=== PATIENT | male | born 1995 | race Caucasian/White ===

== ENCOUNTER 2017-10-24 20:58 | Emergency (ER) | payer BC, SELFPAY ==
[2017-10-24 20:59] VITALS: BP 104/71; PULSE 75; RESP 16; TEMP 36.1; O2SAT 100; BMI 23.3
[2017-10-24] MEDS: fentaNYL 100 MCG/2 ML Ampul 50 MCG IM (21:20)
--- NOTE | 2017-10-24 21:30 | RAD_ITS ---
STUDY: X-RAY - RIGHT RADIUS AND ULNA REASON FOR EXAM: Male, 22 years old. Laceration TECHNIQUE: 2 view(s) of the forearm. COMPARISON: None. FINDINGS: There is no fracture. There is no osseous destruction. No periosteal reaction. There is soft tissue laceration. RAD/Forearm 2 Views IMPRESSION: Intact radius and ulna Electronically Signed: Neel Escoto MD at 21:48 EDT Tel , Service support ,
--- NOTE | 2017-10-24 22:51 | ED.DCSUM_ITS ---
- ER Visit Summary Date of Service: 10/24/17 Chief Complaint: Laceration History of Present Illness: The patient is a [address] Jose De Jesus Black. He is right-hand dominant. He was shutting window when the glass broke and he suffered a laceration to his right forearm. He denies any pain. Reports he has paresthesias in his right thumb. Tetanus is up-to-date. Physical Examination: Vitals: Stable. Afebrile. General: Well-nourished and well-developed. Head: Normocephalic atraumatic. Neck: Supple, no lymphadenopathy. No JVD. Nontender. Cardiovascular: Regular rate and rhythm. No murmurs. Respiratory: No respiratory distress. Clear to auscultation bilaterally. Abdominal: Soft, nontender, nondistended, normal bowel sounds. No guarding, rebound, or peritoneal signs. Back: Nontender. Extremities: 8 cm laceration to the lateral portion of his distal right forearm. This extends through muscle which I suspect is the extensor carpi radialis brevis. I do not appreciate any tendon involvement. This did not get his radial artery. He has decreased sensation to light touch and two-point discrimination in the anterior surface of his right thumb. Is able to extend his thumb against resistance. He has normal sensation in the remainder his fingers.. Skin: Normal color, no rash. Neurologic: Alert and oriented ?3. Cranial nerves II through XII are intact. Normal strength and sensation. Psych: Normal affect. Test Results: X-ray shows no foreign body. Emergency Department Course and Treatment: Patient had his wound anesthetized and repaired. He tolerated it well. He was placed in a volar splint. Treatment Plan: Patient was discussed with Dr. Jimenez, hand surgeon at [facility]. He is instructed to follow-up tomorrow for a repeat exam and further treatment. Disposition: To home in improved and stable condition. Impression: 1. Laceration right forearm, 8 cm, repaired. 2. Volar splint, fabricated. Procedure note: Wound was cleansed with chlorhexidine soap. Anesthetized with 1% lidocaine without epinephrine. Copiously irrigated with normal saline. Wound was explored there is no foreign material present. There was a small, superficial vein that was oozing that was tied off with a single 4-0 Vicryl suture. Bleeding was controlled. It was closed with 9 simple interrupted 4-0 ethilon sutures. The patient tolerated it well. This note was generated with [employer] dictation software. It may contain incorrect words, spelling, and punctuation that were not noted in review of the chart prior to signing ED Disposition - Plan for ED Patient: Disposition: Home or Assisted Living Chief Complaint: Laceration Instructions: ED Lac Hand Poss Nerve Injy Sutr Gl Additional Instructions: Follow-up with Dr. Jimenez tomorrow for further evaluation.
[2017-10-24 23:22] VITALS: BP 98/74; PULSE 73; O2SAT 98
== END 2017-10-24 23:23 | disposition home or self-care (01) ==
LOC: ED 21:54
PROVIDERS: Emergency Provider Emergency Medicine; Family Provider Family Medicine; PCP Family Medicine
DX: S51.812A Laceration without foreign body of left forearm, initial encounter (principal); W25.XXXA Contact with sharp glass, initial encounter; Y93.89 Activity, other specified; Y92.9 Unspecified place or not applicable
CPT/HCPCS: 12004; 73090; 96372; 99283

== ENCOUNTER → 2019-06-30 12:27 | Outpatient (CLI) | payer BC, SELFPAY ==
[2019-06-30 14:08] LABS: Absolute Lymphocyte Count 1.58 X10^3/uL (0.83-4.51); Absolute Neutrophil Count 2.4 X10^3/uL (2.0-7.7); Basophil# 0.02 X10^3/uL; Basophil% 0.4 % (0-1); Eosinophil# 0.02 X10^3/uL; Eosinophils% 0.4 % (0-5); Hemoglobin 16.3 g/dL (13.0-16.5); Lymphocyte # 1.58 X10^3/ul (4.0); Lymphocyte % 32.9 % (19-41); Mean Corpuscular Hgb 29.6 pg (27.0-32.0); Mean Platelet Vol. 12.2 fl (6.2-12.0); Monocyte# 0.76 X10^3/uL; Monocyte% 15.8 % (0-10); NRBC Flagged by Analyzer 0 % (0-5); Neutrophil % 50.1 % (47-70); POSITIVE MORPHOLOGY YES; Platelet Count 141 K/mm3 (150-450); RBC Distribution Width SD 31.9 fl (35.1-43.9); White Blood Count 4.8 K/mm3 (4.4-11.0)
[2019-06-30 14:10] LABS: Differential Indicated SCAN CRITERIA MET
[2019-06-30 14:23] LABS: ALB/GLOB Ratio 1.1 RATIO (0.9-2.4); AST(SGOT) 49 U/L (15-37); Alanine Aminotransfer ALT/SGPT 26 U/L (16-61); Albumin, Serum 4.1 g/dL (3.2-5.0); Alkaline Phosphatase 60 U/L (45-117); Anion Gap 10 (5-15); BUN 32 mg/dL (7-18); BUN/Creat Ratio 30.5 RATIO (10-20); Calcium,Total 8.7 mg/dL (8.5-10.1); Chloride 83 mmol/L (98-107); Creatinine, Serum 1.05 mg/dL (0.70-1.30); EST Glomerular Filtration Rate 94 mL/min (>60); Est Glom Filt Rate - Afr Amer 113 mL/min (>60); Globulin 3.7 g/dL (2.2-4.2); Glucose 96 mg/dL (74-106); Potassium 2.4 mmol/L (3.5-5.1); Protein, Total 7.8 g/dL (6.4-8.2); Sodium Level 127 mmol/L (136-145)
[2019-06-30 14:42] LABS: Reactive Lymphocyte 1+
== END ==
PROVIDERS: PCP Family Medicine; Referring Provider Family Medicine; Visit Provider Family Medicine
DX: R10.9 Unspecified abdominal pain (principal)
CPT/HCPCS: 36415; 80053; 85025

== ENCOUNTER 2019-06-30 13:02 | Emergency (ER) | payer BC, SELFPAY ==
[2019-06-30 13:03] VITALS: BP 115/71; PULSE 109; RESP 18; TEMP 36.4; O2SAT 99; BMI 21.7
--- NOTE | 2019-06-30 13:19 | ED.DCSUM_ITS ---
History of Present Illness Chief Complaint: Seizure Detail of Chief Complaint: Nausea, vomiting and diarrhea Informant: Patient, Family Onset: Today - Today during blood draw he had what appeared to be a seizure, Weeks - The abdominal pain with nausea, vomiting diarrhea started 1 week ago Context: Sudden Onset Timing: Intermittent Quality: Patient became pale, diaphoretic and his extremities stiffened. Location: Blood draw at lab Current Severity: Mild Maximum Severity: Severe Worsened by: Viral infection and blood draw Relieved by: Nothing Associated Symptoms: Abdominal cramping pain, thirst, dry mouth and orthostatic symptoms Narrative: Patient is a 24-year-old male who presents after having a seizure. Blood was being drawn at the time that he had a seizure. He became pale and diaphoretic. He was unresponsive. There was no postictal state. There was no incontinence of urine or stool. He did not bite his tongue. He denies headache. There is no seizure disorder. Patient states he had abdominal pain with nausea, vomit diarrhea started 1 week ago. He had diarrhea the first several days. He reported 3-5 loose watery stools without blood or mucus. He continues to have vomiting. He is vomiting between 5-10 times a day. He denies blood or coffee grounds in the emesis. He does report thirst, dry mouth and orthostatic symptoms. He is not been on antibiotics in the past month. No ill contacts to his knowledge. Mother states no one is ill at home. Prior similar symptoms: No Recent Illness/Hospitalization: Yes - Past Medical History (1) No significant past medical history Status: Acute Past Medical History - Allergies and Home Meds Allergies/Adverse Reactions: Allergies No Known Allergies Allergy (Verified 06/30/19 13:03) Primary Care Physician: Jose De Jesus Reyes MD [Primary Care Provider] - Prior records reviewed: Yes Surgical History: no surgical history Lives: With Family Smoking Status: Current every day smoker Alcohol: None Drugs: None Review of Systems General: Reports: Malaise. Denies: Chills, Fever, Sweats Eyes: Denies: Visual changes - bilaterally, Blurred Vision - bilaterally ENT: Denies: Rhinorrhea, Sore throat Cardiovascular: Denies: Chest pain, Palpitations Respiratory: Denies: Dyspnea, Cough, Dyspnea on exertion Gastrointestinal: Reports: Abdominal pain, Nausea, Vomiting, Diarrhea. Denies: Constipation, Melena, Hematochezia Genitourinary: Denies: Dysuria, Hematuria, Frequency Musculoskeletal: Denies: Myalgias, Arthralgias, Neck pain, Back pain, Swelling, Extremity Pain, -, - Neurological: Reports: Weakness. Denies: Headache, Parasthesia Endocrine: Denies: Polyuria, Polydipsia Physical Exam Vital Signs/Narrative: Vital Signs Temp Pulse Resp BP Pulse Ox 06/30/19 13:03 97.6 F L 109 H 18 115/71 99 Inital Vital Signs reviewed: Yes General: Well nourished, Well developed, No Acute Distress Head: Normocephalic, Atraumatic Eyes: Perrl, EOMI ENT: No rhinorrhea, TM's clear, Dry mucous membranes Neck: Supple, Nontender, No lymphadenopathy, No JVD Cardiovascular: Regular rate, Regular rhythm, No murmurs, Normal S1, Normal S2 Respiratory: No distress, CTA bilaterally, Chest nontender Abdomen: Soft, Nontender, Nondistended, Normal bowel sounds Rectal: Deferred Back: Nontender, Normal Inspection Extremities: Nontender, No edema Skin: Normal color, No rash Neurological: Alert, Oriented x3, Cranial nerves II-XII grossly intact, Normal Strength, Normal Sensation Psychological: Normal affect, Normal Mood Diagnostic/Tx/Re-eval Laboratory Results 06/30/19 13:20 Sodium 127 L Potassium 2.5 L* Chloride 84 L Carbon Dioxide 32.0 Anion Gap 11 BUN 33 H Creatinine 1.12 Estim Creat Clear Calc 94.92 Est GFR (MDRD) Af Amer 105 Est GFR (MDRD) Non-Af 87 BUN/Creatinine Ratio 29.5 H Glucose 118 H Calcium 8.9 Potassium is low at 2.5. Sodium and chloride are also low at [birth year]1983 respectively. BUN is 33 with a creatinine of 1.12. BUN to creatinine ratio is 29.5-1. This is consistent with significant dehydration. Patient received oral potassium solution, 40 mEq q. 1 hour x 8 the total of 3 doses. He is receiving normal saline which should correct his hyponatremia. CO2 and anion gap are normal. Renal function is normal. - Medical Decision Making Kanchan patient is dehydrated. Based on history provided by mother he had a vasovagal episode with seizure-like activity. Because he has had nausea, vomiting diarrhea for 1 week clinically is dehydrated with decreased urine output basic metabolic panel was ordered. He received 1 L of normal saline wide open. It was reassessed. He now has urge to urinate, 1520. After he receives his third dose of p.o. potassium he will be discharged home with appropriate home- going instructions. The afternoon physician we made aware of his history and physical and will only need to intervene if something were to occur. Otherwise he will be discharged to home. ED Disposition - Plan for ED Patient: Disposition: Home or Assisted Living Diagnosis: Abdominal pain, vomiting, and diarrhea, Vasovagal syncope, Hypokalemia due to loss of potassium, Hyponatremia, Acute prerenal azotemia Instructions: VOMITING AND DIARRHEA, Nonspecific (Adult), Self-Care for Vomiting and Diarrhea, Eating a High Potassium Diet Referrals: Jose De Jesus Reyes MD [Primary Care Provider] - 1-2 Days if not improving
[2019-06-30] MEDS: 0.9% Normal Saline 1,000 ML 1000 ML IV (13:23)
[2019-06-30 13:50] LABS: Anion Gap 11 (5-15); BUN 33 mg/dL (7-18); BUN/Creat Ratio 29.5 RATIO (10-20); Calcium,Total 8.9 mg/dL (8.5-10.1); Chloride 84 mmol/L (98-107); Creatinine, Serum 1.12 mg/dL (0.70-1.30); EST Glomerular Filtration Rate 87 mL/min (>60); Est Glom Filt Rate - Afr Amer 105 mL/min (>60); Estimated Creatinine Clearance 94.92 ml/min; Glucose 118 mg/dL (74-106); Potassium 2.5 mmol/L (3.5-5.1); Sodium Level 127 mmol/L (136-145)
[2019-06-30 15:00] VITALS: BP 111/69; PULSE 87; RESP 19; O2SAT 100
== END 2019-06-30 16:20 | disposition home or self-care (01) ==
PROVIDERS: Emergency Provider Emergency Medicine; PCP Family Medicine
DX: R10.9 Unspecified abdominal pain (principal); R11.10 Vomiting, unspecified; R19.7 Diarrhea, unspecified; R55 Syncope and collapse; E87.6 Hypokalemia; E87.1 Hypo-osmolality and hyponatremia; R79.89 Other specified abnormal findings of blood chemistry; E86.0 Dehydration; F17.200 Nicotine dependence, unspecified, uncomplicated
CPT/HCPCS: 80048; 96360; 99284; J7030; A4216

== ENCOUNTER → 2019-10-21 14:01 | Outpatient (CLI) | payer BC, SELFPAY ==
--- NOTE | 2019-10-21 14:04 | RAD_ITS ---
STUDY: X-RAY - LEFT ELBOW REASON FOR EXAM: Male, 24 years old. left elbow pain, fell on it 2 days ago TECHNIQUE: 3 view(s) of the elbow. COMPARISON: None. FINDINGS: Acute nondisplaced coronoid process fracture. No dislocation. No bone destruction. Small volume elbow joint effusion. RAD/Elbow min 3 Views IMPRESSION: Acute nondisplaced coronoid process fracture Small elbow joint effusion Electronically Signed: Johnnie Pal DO at 8:20 EDT Tel , Service support ,
== END ==
PROVIDERS: PCP Family Medicine; Referring Provider Family Medicine; Visit Provider Family Medicine
DX: S59.902A Unspecified injury of left elbow, initial encounter (principal)
CPT/HCPCS: 73080

== ENCOUNTER 2024-06-03 12:07 | Emergency (ER) | payer OTHER, SELFPAY ==
[2024-06-03 12:14] VITALS: BP 129/89; PULSE 77; RESP 18; TEMP 36.7; O2SAT 99; BMI 26.4
--- NOTE | 2024-06-03 12:17 | RAD_ITS ---
HISTORY: pain/edema. TECHNIQUE: XR Hand Min 3 Views. COMPARISON: None. FINDINGS: BONES : Complex comminuted fracture of the second proximal phalanx. Mild ulnar displacement, impaction with overlap, and angulation, apex palmar. Small bone island the third metacarpal head JOINTS: No dislocation. Joint spaces maintained. SOFT TISSUES: Soft tissue swelling of the second finger. RAD/Hand Min 3 Views IMPRESSION: Comminuted fracture of the left second proximal phalanx with angulation and mild displacement.. Electronically Signed: Sherri Kirk MD at 12:58 EST ,
--- NOTE | 2024-06-03 14:13 | EX.ED.UPPERE ---
HPI History of Present Illness Chief Complaint: Upper Extremity Injury Narrative Narrative: 29-year-old male, [id number], presents with work-related injury. 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 He got his left hand crushed by a heavy piece of equipment weighing approximately 3000 pounds. He states that his left hand was not pinned, but he had it removed very quickly. They were trying to remove/move the equipment and it fell off the hooks. He has noticed swelling at the base of his left second digit, and has pain along the proximal phalanx. Pain is worse with movement, and relieved by nothing. He denies other injuries. PFSH PFSH Home Medications ?Medication ?Instructions ?Recorded ?Last Taken ?Type ibuprofen 200 mg tablet 600 mg (3 x 200 mg) PO Q6H PRN PRN 04/05/14 Unknown Rx Pain ##30 NK 10/24/17 Unknown History Allergy/AdvReac Type Severity Reaction Status Date / Time No Known Allergies Allergy Verified 06/03/24 12:13 Social History Smoking Status: Current every day smoker tobacco type: cigarettes ROS ROS ED ROS Narrative Review of systems positive for left hand swelling and pain in left second digit. Pain worse with movement. No other injury. No head pain or neck pain. No wrist pain. EXAM Physical Exam Narrative Exam Narrative: GCS 15. ABCs intact. Inspection of the left hand does reveal moderate swelling at the base of the left second digit. Positive tenderness to palpation proximal phalanx. Good capillary refill second digit fingertip. Cardiovascular examination regular rate and rhythm. Lungs clear to auscultation bilaterally. Abdomen soft and nontender. Const Vital Signs: 06/03/24 12:14 Temperature 98.1 F Temperature Source Temporal Pulse Rate 77 Respiratory Rate 18 Blood Pressure 129/89 H Blood Pressure Mean 102 Pulse Ox 99 Oxygen Delivery Method Room Air MDM MDM MDM Narrative Medical decision making narrative: Differential diagnosis includes but not limited to left finger contusion versus fracture. X-rays were obtained per protocol of the left hand. On my independent interpretation, there is a comminuted fracture of the left second proximal phalanx with mild displacement. It does not appear to be intra-articular. Additionally, although he may have slight abrasions on his hand, I do not feel this is an open fracture that requires antibiotic treatment. As this is a work-related injury, patient will require testing. He was given 1 oxycodone tablet here and he will be placed in an aluminum foam splint. He will continue ice and elevation at home and [id number] analgesics until follow-up. He was referred to Dr. Red Jc for further management and treatment. Return instructions to the emergency department were reviewed. Disposition is discharged home in stable condition. History & Record Review Discussion w/independent historian: Patient Radiography X-Ray: Read by ED Physician and Read by Radiologist Diagnostic Testing: Clinical Impression(s) from Imaging Studies Hand X-Ray 06/03/24 12:17 IMPRESSION: Comminuted fracture of the left second proximal phalanx with angulation and mild displacement.. Electronically Signed: Sherri Kirk MD at 12:58 EST Reading Location ID and State: [facility] / [place] Tel , Service support , Discharge Plan Triage Chief Complaint: Upper Extremity Injury ED Provider: Freeman Abbott Dx/Rx/DC Orders Clinical Impression: Finger fracture, left, Crushing injury of hand and fingers Instructions: ED Crush Injury, Hand, ED Fracture, Finger, Closed Prescriptions: No Action ibuprofen 200 MG tablet 600 mg PO Q6H PRN PRN (Reason: Pain) Qty: 30 0RF NK Primary Care Provider: Care Physician,No Primary Referrals: Red Jc MD [Med Staff - Active Staff] - 3-5 Days Care Physician,No Primary [Primary Care Provider] - Activity Restrictions/Additional Instructions: Call Dr. Jc for an appointment to be seen within the next week. Take [id number] medications as needed for pain. Continue ice and elevation of your left hand/finger at home. Print Language: [place] Citizen Disposition Disposition: Home, Self Care
[2024-06-03] MEDS: oxyCODONE 5 MG Tablet PO (14:23)
[2024-06-03] MEDS: Morphine 4 MG/ML Syringe 8 MG IM (14:43)
[2024-06-03 15:15] VITALS: BP 140/68; PULSE 82; RESP 16; TEMP 36.6; O2SAT 99
== END 2024-06-03 15:17 | disposition home or self-care (01) ==
PROVIDERS: Emergency Provider Emergency Medicine; Visit Provider Emergency Medicine
DX: S62.611A Displaced fracture of proximal phalanx of left index finger, initial encounter for closed fracture (principal); Y99.0 Civilian activity done for income or pay; W23.0XXA Caught, crushed, jammed, or pinched between moving objects, initial encounter; F17.210 Nicotine dependence, cigarettes, uncomplicated; Y93.89 Activity, other specified; Y92.63 Factory as the place of occurrence of the external cause
CPT/HCPCS: 73130; 96372; 99283

== ENCOUNTER 2024-06-06 06:10 | Day surgery (SDC) | payer OTHER, SELFPAY ==
--- NOTE | 2024-06-05 12:53 | PCM.OPRPT ---
Operative Report (Standard) Operative Information Date of Procedure: 06/06/24 Pre-Operative Diagnosis: Left index finger proximal phalanx fracture Post-Operative Diagnosis: Same Surgery/Procedure Performed: Left index finger open reduction internal fixation, CPT: 19588 etl database developer: No Type of Anesthesia: General (with 14 cc 0.25% Marcaine block at the completion of the case) RN Documented Start/Stop Times: Operation Date: 06/06/24 07:30 Case Time Into Pre-Op 06/06/24 06:17 Out of Pre-Op 06/06/24 07:34 Anesthesia Start 06/06/24 07:37 Into Room 06/06/24 07:37 Procedure Start 06/06/24 07:56 Procedure End 06/06/24 08:27 Anesthesia End 06/06/24 08:33 Out of Room 06/06/24 08:33 Procedure Start Time: 07:56 Procedure Stop Time: 08:27 Select all DRAINS/GRAFTS/IMPLANTS that apply: Implanted device (InFram Implant, 2.0 mm x 40 mm screw, Exsomed, Stainless steel ) Implanted device details: Exsomed screw, 2 mm x 40 mm Estimated Blood Loss: minimal Specimen collected: No Description of surgery: Indications: 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 Presents today for ORIF v CRPP. Risks, benefits, and alteratives, discussed, and he desired to proceed with surgery. Procedure Details: Patient was correctly identified preoperative holding and marked, and taken back to the operating room where they were administered general anesthesia. They were prepped and draped in sterile fashion and all proper timeouts were performed per protocol. I began the procedure by taking an x-ray of the fracture. I was able to reduce the fracture with gentle manipulation. I then took a guidewire for an Exsomed intramedullary screw and drilled from the proximal radial side of P1 to the distal ulnar side of P1 across the fracture line stabilizing the fracture. Mini C arm x-rays confirmed proper placement and reduction (on PA and lateral). I then checked the digital cascade and there was no angulation or rotation of the index finger or scissoring. Therefore we proceeded and a cut down with 15 blade scalpel was made down to the base of P1 (this was the open part of the procedure). The screw was then placed through the guidewire into the proximal phalanx across the fracture line bridging the gap and filling the medullary cavity well. I was happy with the x-ray on PA and lateral. I stressed the fracture line with radial and ulnar stress and the construct appeared to be rigid and stable. The cascade was checked one more time and was acceptable. With the guidewire removed, I then irrigated the small wound on the dorsum of the hand and closed with an interrupted horizontal mattress 4-0 nylon suture. The patient tolerated the procedure well and was placed in radial gutter splint with plaster. Surgical Findings: Able to reduce fracture and place screw Complications Complications: No Admit VTE Documentation VTE Mechan Device Prophylaxis: SCD's
--- NOTE | 2024-06-05 13:03 | HP.PCM.SX_ITS ---
HPI - General HPI Narrative COLLIN BOOTH, is a 29 M who presents for left index finger ORIF. Current Encounter (DATE OF SURGERY H&P UPDATE): I saw and examined the patient this morning in pre-operative holding. We discussed risks and benefits of today's surgery and they would like to proceed. NO CHANGE in health history since last seen and evaluated. Ready to proceed with surgery. [facility] Medical History (Updated 06/06/24 @ 06:[address] Kevin Burks MD) Alcohol use Marijuana use Injury of head and neck Former smoker History of edema Home Medications ?Medication ?Instructions ?Recorded ?Last Taken ?Type ibuprofen 200 mg tablet 600 mg (3 x 200 mg) PO Q6H PRN PRN 04/05/14 06/05/24 Rx Pain #30 TABLETS doxycycline monohydrate 100 mg 100 mg PO BID 7 days #14 caps 06/05/24 06/05/24 Rx capsule oxycodone 5 mg capsule 5 mg PO Q4H PRN pain (scale score 06/05/24 06/05/24 Rx 7-10) 5 days #20 caps Allergy/AdvReac Type Severity Reaction Status Date / Time No Known Allergies Allergy Verified 06/05/24 13:46 Surgical History (Updated 06/06/24 @ 06:[address] Kevin Burks MD) History of open arm wound Social History Smoking Status: Former smoker alcohol intake: current substance use type: marijuana Physical Exam Narrative LEFT Upper Extremity Inspection: Swelling and deformity of the left index finger with dorsal angulation. He is unable to make a full fist. Palpation: Deferred Volar hand with superficial skin abrasion at the index finger/palm region without any open fracture component. Motor: Able to bend and extend all MP, PIP, and DIP joints. No signs of tendon injury on the injured left index finger as he is able to bend and extend all of the joints including the DIP joint. Sensory: Intact to light touch on the radial and ulnar borders. Vascular: Finger tips are warm and well perfused with <2 second capillary refill. Assessment & Plan Assessment/Plan (1) Crushing injury of left hand, initial encounter: (2) Closed displaced fracture of phalanx of left index finger: PLAN: Plan I talked the patient extensively about the risks of surgery, including bleeding, infection, damage to surrounding structures, hardware failure, MRI incompatibility of some of the screws that may be used, malunion, non-union, infection/osteomyelitis, surgical site dehiscence and wound formation, need for wound care, need for repeat operations, failure to obtain the desired result, DVT/PE, and the risks of anesthesia including . Talked about closed treatment with attempt at improved reduction v. intervention. Discussed screws v. pinning and risks/benefits (patient would like early ROM if possible). The benefits and alternatives of this surgery were also discussed. All of their questions were answered, and they agreed to proceed with surgery. Hand cleaned and placed in a radial gutter splint. Plan for CRPP v ORIF in the operating room tomorrow morning under general a nesthesia. INTERVAL H&P PLAN, DATE OF SURGERY: We will proceed with surgery today. We further discussed risks of further comminution of the fracture from the hardware, as well as above noted risks. He and his would like to proceed.
[2024-06-06] VITALS (10 sets, daily range): BP systolic 110–118; BP diastolic 57–77; PULSE 76–91; RESP 16–20; TEMP 36.4–37.2; O2SAT 95–100; BMI 25.5
[2024-06-06] MEDS: 0.9% Normal Saline (1000mL) 1,000 ML 15 ML IV (06:41)
--- NOTE | 2024-06-06 06:54 | PCM.PRE.AN2 ---
ASA Classification* ASA Classification ASA Classification: 2 Assessment & Plan Anesthesia* Anesthesia Assessment Anesthesia Assessment: Discussed sedation and/or anesthesia options, risks, benefits, and alternatives with patient/parents/legal guardian/POA. Questions invited. The patient/parents/legal guardian/POA seems to understand and agrees to proceed with anesthesia plan. Reviewed the physical assessment, medical history, allergy history and patient home medications list prior to surgery/procedure/anesthetic and documented any changes. Performed airway and anesthesia risk assessments. Anesthesia Type Anesthesia Type: General History Source History Obtained from:: Patient and Chart Anesthesia Focused Assessment* Temperature: 98.9 F Pulse Rate: 85 Blood Pressure: 112/77 Respiratory Rate: 16 Pulse Ox: 97 Oxygen Delivery Method: Room Air Airway Assessment Mouth opens: >3 cm Mallampati Score: II Teeth Condition: Intact Neck Range of motion (ROM): Full ROM Focused Labs Anesthesia Preop lab: CBC WBC 4.8 K/mm3 (4.4-11.0) 06/30/19 12:35 RBC 5.50 M/mm3 (4.6-6.2) 06/30/19 12:35 Hgb 16.3 g/dL (13.0-16.5) 06/30/19 12:35 Hct 44.0 % (40-54) 06/30/19 12:35 Plt Count 141 K/mm3 (150-450) L 06/30/19 12:35 CHEMISTRY Potassium 2.5 mmol/L (3.5-5.1) L* 06/30/19 13:20 Sodium 127 mmol/L (136-145) L 06/30/19 13:20 BUN 33 mg/dL (7-18) H 06/30/19 13:20 Creatinine 1.12 mg/dL (0.70-1.30) 06/30/19 13:20 Glucose 118 mg/dL (74-106) H 06/30/19 13:20 COAG Pre-Assessment Diagnosis/Proposed Procedure Planned Operative Procedure(s): ORIF LEFT INDEX FINGER Anesthesia History 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 When Was Last Pacemaker Check QUESTION #4 FULL TEXT: You/Your Family Experience fever (hyperthermia) with Anesthesia Last Oral Intake Last Oral intake: Last Oral Intake NPO since 00:00 06/06/24 06:38 Meds taken in AM with sips of No 06/06/24 06:38 water? Meds patient instructed to take am of surgery PONV PONV - school speech therapist: PONV - school speech therapist Female No 06/05/24 13:47 HX of Motion Sickness No 06/05/24 13:47 HX of N/V After Surgery No 06/05/24 13:47 Non-Smoker Yes 06/05/24 13:47 Duration of Surgery greater Yes 06/05/24 13:47 than 60 minutes Number of Risk Factors 2 06/05/24 13:47 PONV Score Moderate Risk 06/05/24 13:47 Height & Weight Height & Weight: Anesthesia: Height & Weight Height 5 ft 7 in 06/06/24 06:38 Weight: 74 kg 06/06/24 06:38 Body Mass Index (BMI) 25.5 06/06/24 06:38 Respiratory Assessment Respiratory Assessment - school speech therapist: Respiratory Tract Infection Hx - school speech therapist Hx Respiratory Tract Infection No 06/05/24 13:47 STOP Sleep Apnea STOP Sleep Apnea - school speech therapist: STOP Sleep Apnea - school speech therapist Hx Hypertension No 06/05/24 13:47 Hx Sleep Apnea No 06/05/24 13:47 CPAP BIPAP Do you snore loudly (louder No 06/05/24 13:47 than talking or can be heard Do you often feel tired/ No 06/05/24 13:47 fatigued/ sleepy during daytime? Has anyone observed you stop No 06/05/24 13:47 breathing during sleep? STOP Results Negative 06/05/24 13:47 QUESTION #5 FULL TEXT : Do you snore loudly (louder than talking or can be heard through closed doors)? Tobacco Use History Tobacco Use History - school speech therapist: Tobacco Use History - school speech therapist Tobacco Use Smoking Status Former smoker 06/05/24 13:47 Hx Tobacco Use No 06/05/24 13:47 Years Smoking Packs Smoked per Day Smoking Cessation Date was Yes - quit smoking within 15 06/05/24 13:47 within the last 15 years years Hx Smoking Cessation Date 05/28/23 06/05/24 13:47 Hx Smoking Cessation No 06/05/24 13:47 Counseling Hematologic Medial History Hematologic Hx - school speech therapist: Hematologic Medical Hx - cyberathlete Hx of Blood Transfusion No 06/05/24 13:47 Hx of Transfusion in last 3 No 06/05/24 13:47 Months Date of Last Transfusion (if within last 3 months) Ever experience any problems No 06/05/24 13:47 with transfusion(s)? Specify any problems Hx of Preganancy in last 3 N/A 06/05/24 13:47 Months Nurse Filling Out Transfusion DSCHRIBER 06/05/24 13:47 & Questions: Date: 06/05/24 06/05/24 13:47 Time: 13:48 06/05/24 13:47 Patient unable to answer at this time (ie. confused, unrespo /Reproduction History /Reproductive History - school speech therapist: /Reproductive Hx- school speech therapist Hx Now No 06/05/24 13:47 Gestational Age (in weeks): EDC: Hx Hx Para Hx Section SAB No 06/05/24 13:47 Active Medications Active Medications: Current Medications Generic Name Dose Route Start Last Admin Trade Name Freq PRN Reason Stop Dose Admin Cefazolin Sodium 2 gm/ N/A 20 mls @ 400 mls/hr 06/06/24 07:30 IV 06/06/24 07:32 PREOP ONE Sodium Chloride 1,000 mls @ 15 mls/hr 06/06/24 06:20 06/06/24 06:41 IV 06/11/24 19:39 15 mls/hr .Q48H JOSÉ MIGUEL Administration Protocol [facility] Medical History Alcohol use Marijuana use Injury of head and neck Former smoker History of edema Home Medications ?Medication ?Instructions ?Recorded ?Last Taken ?Type ibuprofen 200 mg tablet 600 mg (3 x 200 mg) PO Q6H PRN PRN 04/05/14 06/05/24 Rx Pain #30 TABLETS doxycycline monohydrate 100 mg 100 mg PO BID 7 days #14 caps 06/05/24 06/05/24 Rx capsule oxycodone 5 mg capsule 5 mg PO Q4H PRN pain (scale score 06/05/24 06/05/24 Rx 7-10) 5 days #20 caps Allergy/AdvReac Type Severity Reaction Status Date / Time No Known Allergies Allergy Verified 06/05/24 13:46 Surgical History (Updated 06/06/24 @ 06:[address] Kevin Burks MD) History of open arm wound Social History Smoking Status: Former smoker alcohol intake: current substance use type: marijuana Review of Systems (Anesthesia) ROS Narrative System reviewed and no additional complaints, except as documented.
--- NOTE | 2024-06-06 07:30 | RAD_ITS ---
STUDY: X-RAY - LEFT HAND REASON FOR EXAM: Male, 29 years old. ORIF LT INDEX FINGER TECHNIQUE: 19 fluoroscopic intraoperative spot films of the left hand. COMPARISON: Left hand radiographs dated 06/03/2024. FINDINGS: Fluoroscopic intraoperative spot films were obtained during ORIF of the second proximal phalanx, with sequential images demonstrating intraosseous placement of a cannulated fully threaded screw in the second proximal phalanx. RAD/Hand 2 Views IMPRESSION: Intraoperative spot films obtained during ORIF of the second proximal phalanx. Electronically Signed: Chris Blake MD at 14:08 EST ,
[2024-06-06] MEDS: Cefazolin 2 GM in Syringe IV (07:37)
[2024-06-06] MEDS: Bupiv/Epi 0.25% 30 ML Vial (08:18)
--- NOTE | 2024-06-06 08:37 | PCM.POST.ANE ---
Anesthesia: Postop Eval I Current Vital Signs Temperature: 98.3 F Pulse Rate: 91 Blood Pressure: 110/58 Respiratory Rate: 20 Pulse Ox: 98 Assessment Airway patent: Yes Spontaneous unlabored respirations: Yes nausea: No Vomiting: No Anesthesia Complication: No Fluid Hydration Crystalloid volume administer (ml): 800 Total IV fluid infused: 800 Progress Note Anesthesia document: Postop Eval 1 completed: Yes
--- NOTE | 2024-06-06 09:11 | POSTOPAN2_ITS ---
Anesthesia Postop Eval I Sum Postop Eval Completion status Anesthesia document: Postop Eval 1 completed: Yes Anesthesia Postop Eval I Summary Anesthesia Postop Eval I Summary: Anesthesia Postop Eval I: Assessment Summary Airway patent Yes 06/06/24 08:37 BRINE SUPERVISOR.CSIR Spontaneous unlabored Yes 06/06/24 08:37 BRINE SUPERVISOR.CSIR respirations Mental status nausea No 06/06/24 08:37 BRINE SUPERVISOR.CSIR Vomiting No 06/06/24 08:37 BRINE SUPERVISOR.CSIR Anesthesia Postop Eval I: Fluid Summary Crystalloid volume administer 800 06/06/24 08:37 BRINE SUPERVISOR.CSIR (ml) Colloids volume administered ( ml) Blood Product volume administered (ml) Total IV fluid infused 800 06/06/24 08:37 BRINE SUPERVISOR.CSIR Anesthesia Postop Eval I: Summary Notes Anesthesia Complication No 06/06/24 08:37 BRINE SUPERVISOR.CSIR Anesthesia Complication Comment: Post-operative progress note Anesthesia: Postop Eval II Evaluation Mental status: Awake and Calm Pain Level: 0 nausea: No Vomiting: No
--- NOTE | 2024-06-06 09:11 | PCM.POSTANE2 ---
Anesthesia Postop Eval I Sum Postop Eval Completion status Anesthesia document: Postop Eval 1 completed: Yes Anesthesia Postop Eval I Summary Anesthesia Postop Eval I Summary: Anesthesia Postop Eval I: Assessment Summary Airway patent Yes 06/06/24 08:37 EMERGENCY SERVICES PROFESSIONAL.CSIR Spontaneous unlabored Yes 06/06/24 08:37 EMERGENCY SERVICES PROFESSIONAL.CSIR respirations Mental status nausea No 06/06/24 08:37 EMERGENCY SERVICES PROFESSIONAL.CSIR Vomiting No 06/06/24 08:37 EMERGENCY SERVICES PROFESSIONAL.CSIR Anesthesia Postop Eval I: Fluid Summary Crystalloid volume administer 800 06/06/24 08:37 EMERGENCY SERVICES PROFESSIONAL.CSIR (ml) Colloids volume administered ( ml) Blood Product volume administered (ml) Total IV fluid infused 800 06/06/24 08:37 EMERGENCY SERVICES PROFESSIONAL.CSIR Anesthesia Postop Eval I: Summary Notes Anesthesia Complication No 06/06/24 08:37 EMERGENCY SERVICES PROFESSIONAL.CSIR Anesthesia Complication Comment: Post-operative progress note Anesthesia: Postop Eval II Evaluation Mental status: Awake and Calm Pain Level: 0 nausea: No Vomiting: No
[2024-06-06] MEDS: oxyCODONE 5 MG Tablet PO (09:57)
== END 2024-06-06 10:09 | disposition home or self-care (01) ==
LOC: SDC 06:13 → AC 06:14
PROVIDERS: Referring Provider Surgery Plastic and Reconstructive Surgery; Visit Provider Surgery Plastic and Reconstructive Surgery
PROC: (CPT 26735; principal; 2024-06-06 07:15)
DX: S62.611A Displaced fracture of proximal phalanx of left index finger, initial encounter for closed fracture (principal); Z87.891 Personal history of nicotine dependence; W23.0XXA Caught, crushed, jammed, or pinched between moving objects, initial encounter; F12.90 Cannabis use, unspecified, uncomplicated; S67.22XA Crushing injury of left hand, initial encounter
CPT/HCPCS: 26735; 01830; 73120; 76000; C1713; J2405

== ENCOUNTER 2024-06-10 11:16 | Inpatient (IN) | payer OTHER, SELFPAY ==
[2024-06-10] VITALS (10 sets, daily range): BP systolic 120–141; BP diastolic 63–91; PULSE 68–82; RESP 16–146; TEMP 36.2–36.9; O2SAT 95–99; BMI 25.7; BMI 25.4
--- NOTE | 2024-06-10 11:28 | EX.ED.UPPERE ---
HPI History of Present Illness HPI Narrative: Patient presents with pain and swelling to his left hand that became worse over the past few days. Patient had recent surgery to his left index finger. Patient states he followed up with his surgeon today who referred him to the emergency department. Patient describes his pain as burning. Patient states it is worse with any pressure. Patient states nothing seems to help with it. Patient does admit to some numbness, tingling, and weakness in his left hand. Patient denies any fevers or chills. Patient denies any discharge or drainage. Chief Complaint: Upper Extremity Injury Informant: patient Onset/Context/Timing Onset: Days Context: Gradual Onset Timing: Continuous Quality of Pain: Burning Location: Left hand Worsened by: Pressure Relieved by: Nothing Associated Symptoms Associated Symptoms: Positive for Parasthesia and Weakness [facility] Medical History Alcohol use Marijuana use Injury of head and neck Former smoker History of edema Home Medications ?Medication ?Instructions ?Recorded ?Last Taken ?Type ibuprofen 200 mg tablet 600 mg (3 x 200 mg) PO Q6H PRN PRN 04/05/14 06/05/24 Rx Pain #30 TABLETS doxycycline monohydrate 100 mg 100 mg PO BID 7 days #14 caps 06/05/24 06/05/24 Rx capsule Allergy/AdvReac Type Severity Reaction Status Date / Time No Known Allergies Allergy Verified 06/10/24 11:17 Surgical History History of open arm wound Social History Smoking Status: Current every day smoker tobacco type: cigarettes alcohol intake: current substance use type: marijuana ROS ROS ED Constitutional Constitutional ED: Denies chills or fever(s) Eyes Eyes: Denies blurry vision or change in vision ENT ENT ED: Denies rhinorrhea or sore throat Cardiovascular Cardiovascular: Denies chest pain or palpitations Respiratory/Chest Respiratory/Chest: Denies cough or dyspnea Gastrointestinal Gastrointestinal: Denies nausea or vomiting Genitourinary Genitourinary ED: Denies dysuria or hematuria Musculoskeletal Musculoskeletal: Denies back pain or neck pain Integumentary Denies abscess or rash Neurologic Neurologic: Denies headache(s) or weakness Allergic/Immunologic Allergic/Immunologic ED: Denies mouth swelling or urticaria EXAM Physical Exam Const Vital Signs: 06/10/24 11:16 Temperature 97.2 F L Temperature Source Temporal Pulse Rate 68 Respiratory Rate 146 H Blood Pressure 138/91 H Blood Pressure Mean 106 Pulse Ox 98 Oxygen Delivery Method Room Air Positive well nourished and well developed General Appearance ED: well developed and NAD HEENT Reports moist mucous membranes Neck full ROM and supple Extremity Extremity Narrative: There is edema and tenderness over the left hand. There is no discharge or drainage from the surgical wounds. Sensation was intact to light touch in all digits. Capillary refill was less than 2 seconds in all digits. Neuro oriented x3, CN's II-XII intact bilaterally, moves all extremities, no focal motor deficits and no sensory deficits noted Sensorium / Orientation: alert Motor Exam: strength 5/5 throughout Psych mental status grossly normal MDM MDM MDM Narrative Medical decision making narrative: Differential diagnosis includes postoperative infection, osteomyelitis, and cellulitis. CBC will be obtained to assess for leukocytosis and anemia. Basic metabolic profile will be obtained to assess for electrolyte abnormality and renal function. Lab Data Lab results narrative: CBC was reviewed and was within normal limits. Treatment and Re-Evaluation Narrative: Patient was given IV fluids and Ancef. Case was discussed with Dr. Jc. He will admit the patient to his service. He stated that he already obtained x-rays prior to arrival. Patient understood and was agreeable with the plan. All questions were answered. Discharge Plan Dx/Rx/DC Orders Clinical Impression: Cellulitis of hand, left, Finger fracture, left Disposition Disposition: Acute Care Hospital [facility]
[2024-06-10] MEDS: 0.9% Normal Saline (1000mL) 1,000 ML 1000 ML IV (11:49)
[2024-06-10] MEDS: Cefazolin 1 GM/50 ML BAG IV (12:03)
[2024-06-10 12:12] LABS: Absolute Lymphocyte Count 1.45 X10^3/uL (0.83-4.51); Basophil# 0.05 X10^3/uL; Basophil% 0.8 % (0-1); Eosinophil# 0.09 X10^3/uL; Eosinophils% 1.5 % (0-5); Hematocrit 40.4 % (40-54); Hemoglobin 14.3 g/dL (13.0-16.5); Lymphocyte # 1.45 X10^3/ul (0.83-4.51); Lymphocyte % 23.6 % (19-41); Mean Corp Hgb Conc 35.4 g/dL (32-36); Mean Corpuscular Hgb 30.8 pg (27.0-32.0); Mean Corpuscular Volume 87.1 fL (80-94); Mean Platelet Vol. 9.7 fl (6.2-12.0); Monocyte# 0.59 X10^3/uL; Monocyte% 9.6 % (0-10); NRBC Flagged by Analyzer 0 % (0-5); Neutrophil # 3.95 X10^3/uL (2.7-7.7); Neutrophil % 64.2 % (47-70); Platelet Count 216 K/mm3 (150-450); RBC Distribution Width SD 38.5 fl (35.1-43.9); Red Blood Count 4.64 M/mm3 (4.6-6.2); White Blood Count 6.2 K/mm3 (4.4-11.0)
[2024-06-10 12:30] LABS: Anion Gap 4 (5-15); BUN 16 mg/dL (7-18); Calcium,Total 9.1 mg/dL (8.5-10.1); Chloride 104 mmol/L (98-107); Creatinine, Serum 0.89 mg/dL (0.70-1.30); EST Glomerular Filtration Rate 109 mL/min (>60); Est Glom Filt Rate - Afr Amer 132 mL/min (>60); Estimated Creatinine Clearance 116.56 ml/min; Glucose 181 mg/dL (74-106); Potassium 3.8 mmol/L (3.5-5.1); Sodium Level 136 mmol/L (136-145)
--- NOTE | 2024-06-10 12:55 | CASEMGMT ---
Care Management Face to Face with patient for initial transition planning/care coordination assessment in the ED. This writer producer introduced self and role at [facility]. Patient lying in bed, alert and oriented. Patient willing to participate in assessment and is able to answer all questions appropriately. Patient's mother, Jagdeep, bedside; patient gave permission to speak in front of patient's mother. Admitting Diagnosis: cellulitis of left hand Other diagnosis history: no significant past medical history PCP: Dr. Tse Specialists: Dr. Jc. Patient also reports having an arm surgeon at [facility] that patient checks in with occasionally; surgery was 6 years ago. Preferred Pharmacy: [facility] Insurance: patient states this is a worker's compensation claim due to it being a work injury ([facility]); patient reports receiving insurance through patient's employer, [email or web address], at patient's 3 month richard with the [employer]. Patient reports being about 6 weeks in to employment. Prescription Benefit: none Living Will/HPOA: none; denies need for info. LNOK: , Susan. Living Arrangements: lives with in patient's parents' basement; full flight of stairs from main floor to basement; independent at baseline Transportation: patient drives DME: none HHC: none SNF/Rehab: none Community Resources: none Behavioral Health History: none Patient goals: Patient wishes to discharge home and denies need for SNF or HHC at this time. Patient states she has no further needs or concerns. Disposition Plan: admission to acute; RN CM/SW to follow for discharge planning needs that may arise. Chandni Montiel, WATER PLANT OPERATOR, BOSS DYER
--- NOTE | 2024-06-10 14:06 | ED.RN ---
Pt declines to put on hospital gown at this time.
[2024-06-10] MEDS: Vancomycin HCl 1,250 MG in 0.9% Normal Saline (250mL Bag) 250 ML 167 MG IV (14:50)
--- NOTE | 2024-06-10 15:28 | HP.PCM_ITS ---
<Statement entered by Red Jc MD - 06/10/24 17:24> Pt seen & evaluated w/RICHELLE. I personally interviewed & exam the pt. I was involved in all aspects of pt's orders, interpretation of results & treatment HPI - General General Date of Admission: 06/10/24 Date of Service: 06/10/24 Chief Complaint: Left hand pain and erythema HPI Narrative COLLIN BOOTH, is a 29 M who presented to this morning's clinic (06/10/24) with increased pain, erythema, and swelling of his left hand. It was decided to send him to the ED to be evaluated and admitted for IV therapy due to his cellulitis and recently placed hardware. On 06/03/24, Collin, [id number], presented to the ED with work-related injury. 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 He got his left hand crushed by a heavy piece of equipment weighing approximately 3000 pounds. He states that his left hand was not pinned, but he had it removed very quickly. They were trying to remove/move the equipment and it fell off the hooks. He noticed swelling at the base of his left second digit, and has pain along the proximal phalanx. Pain was worse with movement, and relieved by nothing. He denied other injuries. Hand X-Ray 06/03/24 12:17 IMPRESSION: Comminuted fracture of the left second proximal phalanx with angulation and mild displacement (closed fracture). He was taken to the OR on 06/06/[address] Jc for Left index finger open reduction internal fixation. [facility] Medical History Finger fracture, left Crushing injury of hand and fingers Closed displaced fracture of phalanx of left index finger Crushing injury of left hand, initial encounter Alcohol use Marijuana use Injury of head and neck Former smoker History of edema Home Medications ?Medication ?Instructions ?Recorded ?Last Taken ?Type ibuprofen 200 mg tablet 600 mg (3 x 200 mg) PO Q6H PRN PRN 04/05/14 06/05/24 Rx Pain #30 TABLETS doxycycline monohydrate 100 mg 100 mg PO BID 7 days #14 caps 06/05/24 06/05/24 Rx capsule oxycodone 5 mg tablet 5 mg PO Q4H PRN pain 06/10/24 Unknown History Allergy/AdvReac Type Severity Reaction Status Date / Time No Known Allergies Allergy Verified 06/10/24 11:17 Surgical History (Updated 06/10/24 @ 15:57 by Jeri Whitman NP, GINNER HELPER-C) History of open reduction and internal fixation (ORIF) procedure History of open arm wound Social History Smoking Status: Current every day smoker tobacco type: cigarettes alcohol intake: current substance use type: marijuana ROS Constitutional Constitutional: Denies chills or fever(s) Eyes Eyes: Reports none ENT HEENT: Reports none Cardiovascular Cardiovascular: Denies chest pain or dyspnea Respiratory/Chest Respiratory/Chest: Denies cough or dyspnea Gastrointestinal Gastrointestinal: Reports none Genitourinary Genitourinary: Reports none Musculoskeletal Musculoskeletal: Reports as per HPI, extremity pain and joint swelling Integumentary Integumentary: Reports as per HPI Neurologic Neurologic: Reports none Psychiatric Psychiatric: Reports none Endocrine Endocrinology: Reports none Hematologic/Lymphatic Hematologic/Lymphatic: Reports none Allergic/Immunologic Allergic/Immunologic: Reports none Vital Signs Vital Signs Vital Signs: 06/10/24 11:16 06/10/24 12:20 06/10/24 12:44 Temperature 97.2 F L 98.1 F 98.1 F Temperature Source Temporal Oral Pulse Rate 68 72 78 Respiratory Rate 146 H 18 16 Blood Pressure 138/91 H 135/78 H 141/79 H Blood Pressure Mean 106 97 99 Pulse Ox 98 96 97 Oxygen Delivery Method Room Air Room Air 06/10/24 13:00 06/10/24 14:00 06/10/24 15:00 Temperature 98.2 F 98.3 F 98.4 F Temperature Source Oral Oral Oral Pulse Rate 71 72 74 Respiratory Rate 16 16 16 Blood Pressure 132/74 H 135/72 H 132/78 H Blood Pressure Mean 93 93 96 Pulse Ox 97 99 99 Oxygen Delivery Method Room Air Room Air Room Air Weight Weight: 164 lb 10.965 oz Body Mass Index (BMI) 25.7 Physical Exam Const alert and oriented x3 General Appearance: cooperative HEENT normocephalic Head and Scalp: atraumatic Eyes General Eye: normal appearance of both eyes Neck full ROM Resp normal respiratory effort and normal air movement Effort and Inspection: able to speak in complete sentences Cardio regular rate and regular rhythm GI soft to palpation and non-tender Back/Spine normal ROM Extremity Extremity Narrative: LUE: Splint removed Inspection: left index finger without any rotation/angulation. Incision c/d/i no purulent drainage. No fluctuant. But there is significant tenderness to palpation and redness and warmth on the dorsum of the hand, as well as swelling, consistent with cellulitis. Palpation: TTP over the dorsum of the hand. Motor: Deferred today Sensation: Intact to light touch on radial and ulnar borders of all fingers. Vascular: finger warm and well perfused. Skin Skin Narrative: Incision is dry and intact. Neuro oriented x3 Psych mental status grossly normal, thought process normal, cooperative and affect normal Results Lab / Micro Data 06/10/24 11:50 06/10/24 11:50 Labs: Laboratory Results - last 24 hr 06/10/24 11:50: WBC 6.2, RBC 4.64, Hgb 14.3, Hct 40.4, MCV 87.1, MCH 30.8, MCHC 35.4, RDW Std Deviation 38.5, RDW Coeff of Claudia 12.0, Plt Count 216, MPV 9.7, Immature Gran % (Auto) 0.300, Neut % (Auto) 64.2, Lymph % (Auto) 23.6, [place] % (Auto) 9.6, Eos % (Auto) 1.5, Baso % (Auto) 0.8, Absolute Neuts (auto) 4.0, Absolute Lymphs (auto) 1.45, Nucleated RBC % 0, Sodium 136, Potassium 3.8, Chloride 104, Carbon Dioxide 28.0, Anion Gap 4 L, BUN 16, Creatinine 0.89, Estim Creat Clear Calc 116.56, Est GFR (MDRD) Af Amer 132, Est GFR (MDRD) Non-Af 109, BUN/Creatinine Ratio 18.0, Glucose 181 H, Calcium 9.1 Assessment & Plan Assessment/Plan (1) Cellulitis of hand, left: (2) Crushing injury of left hand, initial encounter: (3) Closed displaced fracture of phalanx of left index finger: (4) Crushing injury of hand and fingers: PLAN: Plan Given that there is significant infection today,we will plan for admission under plastic surgery with consultation from infectious disease (although not concern for hardware infection at this time, there is infection after placement of the intramedullary screw). Will plan on starting him on Vancomycin and Zosyn. Will have him keep his left hand/arm elevated (hand elevator) at all times to help with swelling and pain control.
--- NOTE | 2024-06-10 16:02 | PCM.RX.CS ---
Consult Antibiotic Management Pharmacy has been consulted to manage selected antibiotic: Vancomycin Type of Intervention Type of Consult: New start Suspected Infection Suspected Infection: Skin/Soft tissue Prior Doses of Antibiotics Prior Doses of Antibiotics Received/Current Regimen: Vancomycin 1250 mg IV x 1 given 06/10/24 @ 1450 Labs Labs: Sodium 136 mmol/L (136-145) 06/10/24 11:50 Potassium 3.8 mmol/L (3.5-5.1) 06/10/24 11:50 Chloride 104 mmol/L (98-107) 06/10/24 11:50 Carbon Dioxide 28.0 mmol/L (21.0-32.0) 06/10/24 11:50 Anion Gap 4 (5-15) L 06/10/24 11:50 BUN 16 mg/dL (7-18) 06/10/24 11:50 Creatinine 0.89 mg/dL (0.70-1.30) 06/10/24 11:50 Est GFR (MDRD) Af Amer 132 mL/min (>60) 06/10/24 11:50 Est GFR (MDRD) Non-Af 109 mL/min (>60) 06/10/24 11:50 BUN/Creatinine Ratio 18.0 RATIO (10-20) 06/10/24 11:50 Glucose 181 mg/dL (74-106) H 06/10/24 11:50 Dosing Weight Weight used for dosin kg Estimated Creatinine Clearance Estimated Creatinine Clearance: ~ 117 Goal Trough Goal Trough: 15-20 mcg/mL Pharmacy Plan for Drug Dosing Pharmacy Plan for Drug Dosing: Vancomycin 1250 mg IV x 1 followed by 1250 mg Q12H Pharmacy Service will continue to monitor and adjust dosing as required. Follow-Up Labs Follow-Up Labs: Trough: Vancomycin Date/Time Labs Ordered Labs to be done on [date and time ordered]: 06/12/24 @ [id number]
[2024-06-10] MEDS: Piperacil/Tazobactam 3.375 GM in 0.9% Normal Saline (50mL MB+) 50 ML IV ×2 (17:22→22:01)
[2024-06-10] MEDS: Enoxaparin 40 MG/0.4 ML Syringe SC (17:23)
[2024-06-10] MEDS: Acetaminophen 500 MG Tablet 1000 MG PO ×2 (17:23→22:01)
[2024-06-11] MEDS: Vancomycin HCl 1,250 MG in 0.9% Normal Saline (250mL Bag) 250 ML 167 MG IV ×2 (03:13→14:45)
[2024-06-11 03:24] VITALS: BP 124/76; PULSE 72; RESP 16; TEMP 37.2; O2SAT 97
[2024-06-11 05:40] LABS: Absolute Lymphocyte Count 1.71 X10^3/uL (0.83-4.51); Basophil# 0.06 X10^3/uL; Basophil% 1.1 % (0-1); Eosinophil# 0.22 X10^3/uL; Hematocrit 40.5 % (40-54); Lymphocyte # 1.71 X10^3/ul (0.83-4.51); Lymphocyte % 30.8 % (19-41); Mean Corp Hgb Conc 34.6 g/dL (32-36); Mean Corpuscular Hgb 30.4 pg (27.0-32.0); Mean Corpuscular Volume 87.9 fL (80-94); Mean Platelet Vol. 9.5 fl (6.2-12.0); Monocyte# 0.54 X10^3/uL; Monocyte% 9.7 % (0-10); NRBC Flagged by Analyzer 0 % (0-5); Neutrophil # 3.01 X10^3/uL (2.7-7.7); Neutrophil % 54.2 % (47-70); Platelet Count 206 K/mm3 (150-450); RBC Distribution Width CV 11.9 % (11.6-14.6); RBC Distribution Width SD 38.3 fl (35.1-43.9); Red Blood Count 4.61 M/mm3 (4.6-6.2); White Blood Count 5.6 K/mm3 (4.4-11.0)
[2024-06-11 06:16] LABS: Anion Gap 1 (5-15); BUN 13 mg/dL (7-18); BUN/Creat Ratio 15.2 RATIO (10-20); Calcium,Total 9.3 mg/dL (8.5-10.1); Chloride 109 mmol/L (98-107); Creatinine, Serum 0.85 mg/dL (0.70-1.30); EST Glomerular Filtration Rate 114 mL/min (>60); Est Glom Filt Rate - Afr Amer 138 mL/min (>60); Estimated Creatinine Clearance 122.05 ml/min; Glucose 101 mg/dL (74-106); Sodium Level 138 mmol/L (136-145)
[2024-06-11] MEDS: Piperacil/Tazobactam 3.375 GM in 0.9% Normal Saline (50mL MB+) 50 ML IV ×3 (06:26→22:15)
[2024-06-11] MEDS: Acetaminophen 500 MG Tablet 1000 MG PO ×3 (06:27→22:23)
[2024-06-11 06:31] VITALS: BP 108/73; PULSE 78; RESP 16; TEMP 36.6; O2SAT 98
[2024-06-11 07:30] VITALS: O2SAT 97
[2024-06-11 07:39] VITALS: BP 121/58; PULSE 73; RESP 16; TEMP 36.7; O2SAT 97
--- NOTE | 2024-06-11 07:43 | PCM.PN.SRG ---
Subjective Subjective Patient reports improved pain. No fevers or chills. Has been elevating hand. Objective Data Objective Data Vital Signs: Vital Signs Temp Pulse Resp BP Pulse Ox O2 Del Method 98.1 F 73 16 121/58 H 97 Room Air 06/11/24 07:39 06/11/24 07:39 06/11/24 07:39 06/11/24 07:39 06/11/24 07:39 06/11/24 07:39 Oxygen Delivery Method Room Air Weight: 162 lb 3.2 oz Body Mass Index (BMI) 25.4 Intake & Output: Intake and Output for Last 24 Hours 06/09/24 06/10/24 06/11/24 23:59 23:59 23:59 Intake Total 1375 / 1900 1000 / 1000 Balance 1375 / 1900 1000 / 1000 Lab / Micro Data 06/11/24 04:59 06/11/24 04:59 Labs: Laboratory Results - last 24 hr 06/10/24 11:50: WBC 6.2, RBC 4.64, Hgb 14.3, Hct 40.4, MCV 87.1, MCH 30.8, MCHC 35.4, RDW Std Deviation 38.5, RDW Coeff of Claudia 12.0, Plt Count 216, MPV 9.7, Immature Gran % (Auto) 0.300, Neut % (Auto) 64.2, Lymph % (Auto) 23.6, [place] % (Auto) 9.6, Eos % (Auto) 1.5, Baso % (Auto) 0.8, Absolute Neuts (auto) 4.0, Absolute Lymphs (auto) 1.45, Nucleated RBC % 0, Sodium 136, Potassium 3.8, Chloride 104, Carbon Dioxide 28.0, Anion Gap 4 L, BUN 16, Creatinine 0.89, Estim Creat Clear Calc 116.56, Est GFR (MDRD) Af Amer 132, Est GFR (MDRD) Non-Af 109, BUN/Creatinine Ratio 18.0, Glucose 181 H, Calcium 9.1 06/11/24 04:59: WBC 5.6, RBC 4.61, Hgb 14.0, Hct 40.5, MCV 87.9, MCH 30.4, MCHC 34.6, RDW Std Deviation 38.3, RDW Coeff of Claudia 11.9, Plt Count 206, MPV 9.5, Immature Gran % (Auto) 0.200, Neut % (Auto) 54.2, Lymph % (Auto) 30.8, [place] % (Auto) 9.7, Eos % (Auto) 4.0, Baso % (Auto) 1.1 H, Absolute Neuts (auto) 3.0, Absolute Lymphs (auto) 1.71, Nucleated RBC % 0, Sodium 138, Potassium 4.0, Chloride 109 H, Carbon Dioxide 28.0, Anion Gap 1 L, BUN 13, Creatinine 0.85, Estim Creat Clear Calc 122.05, Est GFR (MDRD) Af Amer 138, Est GFR (MDRD) Non-Af 114, BUN/Creatinine Ratio 15.2, Glucose 101, Calcium 9.3 Physical Exam Narrative LUE: Splint removed Inspection: left index finger without any rotation/angulation. Incision c/d/i no purulent drainage. No fluctuant. Slight tenderness to palpation and redness and warmth on the dorsum of the hand, as well as swelling, consistent with cellulitis, but improving. Palpation: TTP over the dorsum of the hand. Motor: Deferred today Sensation: Intact to light touch on radial and ulnar borders of all fingers. Vascular: finger warm and well perfused. Assessment & Plan Assessment/Plan (1) Cellulitis of hand, left: PLAN: Continue Vancomycin and Zosyn Daily BMPs Follow up with ID today when they make recommendations. Discussed ambulation and blood clot prevention with patient. He's going to take several walks today. SCDs also for Pxx. Charges/Coding Procedures Integumentary 111xxx-113xx: [id number] Global Visit
--- NOTE | 2024-06-11 08:06 | WOUNDNOTE ---
Dr Jc already in to see patient this am. states there is no wound at this time. will follow as needed.
[2024-06-11] MEDS: Enoxaparin 40 MG/0.4 ML Syringe SC (08:17)
[2024-06-11] MEDS: 0.9% Saline Lock 10 ML Syringe IV ×2 (11:59→14:46)
--- NOTE | 2024-06-11 12:53 | CON.PCM.ID_ITS ---
Assessment & Plan Assessment/Plan (1) Cellulitis of hand, left: PLAN: S/p OR 06/06/[address] Jc for L index ORIF s/p crush injury 06/03/24 with closed fracture. On vanc/zosyn, hand improved today. Concern for hardware involvement. Likely plan for extended po abx at discharge; had been on po doxy prior to admit. Will follow, thank you, d/w surgery team. HPI Consult Data Date of Consult: 06/11/24 HPI Narrative Reason for Consultation: hand infection HPI Narrative: COLLIN BOOTH, is a 29 M who had crush injury at work 06/03/24. 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 Came to D, taken to OR 06/[address] Jc for L index finger ORIF. Has been on doxy since OR but admitted 06/10 due to several days increased redness, swelling, pain. No drainage, no fever. Admitted on vanc/zosyn, hand less red today. Full ROS performed and neg except as noted above. [facility] Medical History Finger fracture, left Crushing injury of hand and fingers Closed displaced fracture of phalanx of left index finger Crushing injury of left hand, initial encounter Alcohol use Marijuana use Injury of head and neck Former smoker History of edema Home Medications ?Medication ?Instructions ?Recorded ?Last Taken ?Type ibuprofen 200 mg tablet 600 mg (3 x 200 mg) PO Q6H PRN PRN 04/05/14 06/05/24 Rx Pain #30 TABLETS doxycycline monohydrate 100 mg 100 mg PO BID 7 days #14 caps 06/05/24 06/05/24 Rx capsule oxycodone 5 mg tablet 5 mg PO Q4H PRN pain 06/10/24 Unknown History Allergy/AdvReac Type Severity Reaction Status Date / Time No Known Allergies Allergy Verified 06/10/24 11:17 Surgical History (Updated 06/10/24 @ 15:57 by Jeri Whitman NP, EDUCATION SALES CONSULTANT-C) History of open reduction and internal fixation (ORIF) procedure History of open arm wound Social History Smoking Status: Former smoker alcohol intake: current substance use type: marijuana Physical Exam Const alert, oriented x3 and no apparent distress General Appearance: cooperative HEENT normocephalic and head/scalp atraumatic Eyes PERRL and EOMs intact bilaterally Neck supple and No nodes Resp normal air movement and clear to auscultation bilaterally Cardio regular rate and regular rhythm GI soft to palpation, non-tender and non-distended Extremity General Extremity: Negative for edema Skin Skin Narrative: L hand mild swelling, fading redness, no drainage. Neuro CN's II-XII intact bilaterally Lab / Micro Data Attestation: I reviewed the patient's lab results. 06/11/24 04:59 06/11/24 04:59 Labs: Laboratory Results - last 24 hr 06/11/24 04:59: WBC 5.6, RBC 4.61, Hgb 14.0, Hct 40.5, MCV 87.9, MCH 30.4, MCHC 34.6, RDW Std Deviation 38.3, RDW Coeff of Claudia 11.9, Plt Count 206, MPV 9.5, Immature Gran % (Auto) 0.200, Neut % (Auto) 54.2, Lymph % (Auto) 30.8, [place] % (Auto) 9.7, Eos % (Auto) 4.0, Baso % (Auto) 1.1 H, Absolute Neuts (auto) 3.0, Absolute Lymphs (auto) 1.71, Nucleated RBC % 0, Sodium 138, Potassium 4.0, C hloride 109 H, Carbon Dioxide 28.0, Anion Gap 1 L, BUN 13, Creatinine 0.85, Estim Creat Clear Calc 122.05, Est GFR (MDRD) Af Amer 138, Est GFR (MDRD) Non-Af 114, BUN/Creatinine Ratio 15.2, Glucose 101, Calcium 9.3
[2024-06-11 14:13] VITALS: BP 115/69; PULSE 76; RESP 16; TEMP 36.8; O2SAT 99
[2024-06-11] MEDS: 0.9% Normal Saline (100mL Bag) 100 ML 15 ML IV (14:45)
[2024-06-11] MEDS: Docusate Sodium 100 MG Capsule PO (14:54)
[2024-06-11] MEDS: oxyCODONE 5 MG Tablet PO (14:54)
--- NOTE | 2024-06-11 16:22 | NURSING ---
All documentation by student nurse Fatoumata Hopkins reviewed by nursing unit coordinator Rufina KEITHN, RN.
[2024-06-11 22:19] VITALS: BP 104/64; PULSE 79; RESP 16; TEMP 37; O2SAT 99
[2024-06-12 03:15] LABS: Vancomycin, Trough Level 7.8 ug/mL (5.0-15.0)
--- NOTE | 2024-06-12 03:46 | PCM.RX.CS ---
Consult Antibiotic Management Pharmacy has been consulted to manage selected antibiotic: Vancomycin Type of Intervention Type of Consult: Follow-up Suspected Infection Suspected Infection: Skin/Soft tissue Labs Labs: Sodium 138 mmol/L (136-145) 06/11/24 04:59 Potassium 4.0 mmol/L (3.5-5.1) 06/11/24 04:59 Chloride 109 mmol/L (98-107) H 06/11/24 04:59 Carbon Dioxide 28.0 mmol/L (21.0-32.0) 06/11/24 04:59 Anion Gap 1 (5-15) L 06/11/24 04:59 BUN 13 mg/dL (7-18) 06/11/24 04:59 Creatinine 0.85 mg/dL (0.70-1.30) 06/11/24 04:59 Est GFR (MDRD) Af Amer 138 mL/min (>60) 06/11/24 04:59 Est GFR (MDRD) Non-Af 114 mL/min (>60) 06/11/24 04:59 BUN/Creatinine Ratio 15.2 RATIO (10-20) 06/11/24 04:59 Glucose 101 mg/dL (74-106) 06/11/24 04:59 Vancomycin Trough 7.8 ug/mL (5.0-15.0) 06/12/24 02:42 Dosing Weight Weight used for dosin.6 kg Estimated Creatinine Clearance Estimated Creatinine Clearance: 122 Goal Trough Goal Trough: 10-15 mcg/mL Pharmacy Plan for Drug Dosing Pharmacy Plan for Drug Dosing: Vancomycin trough level of 7.8, drawn 12hrs post-dose, was below the target range of 10-15. Will increase dose to 1750mg q12h. Per dosing calculator, this will give an estimated new trough of 11.3. Another level will be drawn prior to the fourth dose of the new regimen. Pharmacy Service will continue to monitor and adjust dosing as required. Follow-Up Labs Follow-Up Labs: Trough: Vancomycin Date/Time Labs Ordered Labs to be done on [date and time ordered]: 06/13/24 @1500
[2024-06-12] MEDS: Vancomycin HCl 1,750 MG in 0.9% Normal Saline (500mL Bag) 500 ML 250 MG IV (03:52)
[2024-06-12 04:00] VITALS: BP 107/58; PULSE 66; RESP 16; TEMP 37.2; O2SAT 98
[2024-06-12] MEDS: Acetaminophen 500 MG Tablet 1000 MG PO ×2 (06:05→13:58)
[2024-06-12] MEDS: Piperacil/Tazobactam 3.375 GM in 0.9% Normal Saline (50mL MB+) 50 ML IV (06:06)
[2024-06-12] MEDS: 0.9% Saline Lock 10 ML Syringe IV (06:06)
[2024-06-12 08:27] VITALS: BP 122/76; PULSE 89; RESP 14; TEMP 36.4; O2SAT 97
[2024-06-12] MEDS: oxyCODONE 5 MG Tablet PO (08:34)
[2024-06-12] MEDS: Ibuprofen 600 MG Tablet PO (08:34)
--- NOTE | 2024-06-12 08:38 | NURSING ---
concur with SN assessment
--- NOTE | 2024-06-12 10:26 | PCM.PN.ID ---
Physical Exam Narrative Feeling better, hand improved, no fever, no n/v/d. Const alert and no apparent distress General Appearance: cooperative Resp normal air movement and clear to auscultation bilaterally Cardio regular rate and regular rhythm GI soft to palpation, non-tender and non-distended Skin Skin Narrative: L hand improved redness and swelling ID ID: Route of nutrition/ use of supplements: [] Nutritional Intake: [] IV Site: [] Hightower Catheter: [] Assessment & Plan Assessment/Plan (1) Cellulitis of hand, left: PLAN: S/p OR 06/06/[address] Jc for L index ORIF s/p crush injury 06/03/24 with closed fracture. On vanc/zosyn, hand improved today. Concern for hardware involvement. Will write for 6 weeks po doxy and augmentin, ID followup in 2-3 weeks. Will follow, d/w case management assistant
--- NOTE | 2024-06-12 13:03 | PN.SURG_ITS ---
Subjective Subjective Patient is doing well. He states he continues to have incisional discomfort. He states that the redness and swelling are improving. His pain has improved. He has been doing a good job keeping his hand elevated and his splint in place. He would like to go home today. Objective Data Objective Data Vital Signs: Vital Signs Temp Pulse Resp BP Pulse Ox O2 Del Method 97.6 F L 89 14 122/76 H 97 Room Air 06/12/24 08:27 06/12/24 08:27 06/12/24 08:27 06/12/24 08:27 06/12/24 08:27 06/12/24 08:27 Oxygen Delivery Method Room Air Weight: 162 lb 3.2 oz Body Mass Index (BMI) 25.4 Intake & Output: Intake and Output for Last 24 Hours 06/10/24 06/11/24 06/12/24 23:59 23:59 23:59 Intake Total 1375 / 1900 2125.25 / 212.25 1035 / 1035 Balance 1375 / 1900 2124. / 1035 / 1035 Lab / Micro Data Attestation: I reviewed the patient's lab results. 06/11/24 04:59 06/11/24 04:59 Labs: Laboratory Results - last 24 hr 06/12/24 02:42: Vancomycin Trough 7.8 Physical Exam Narrative Left index finger without any rotation or angulation. Incision is dry and intact. Erythema has resolved. Fingers and hand are warm, dry and well perfused. Sensation intact. Splint in place. Const alert and oriented x3 General Appearance: cooperative Orientation / Consciousness: awake HEENT normocephalic Eyes General Eye: normal appearance of both eyes Neck full ROM Resp normal respiratory effort and normal air movement Effort and Inspection: able to speak in complete sentences Cardio regular rate and regular rhythm Back/Spine normal ROM Assessment & Plan Assessment/Plan (1) Cellulitis of hand, left: PLAN: Patient doing well. ID into see patient earlier today. He will start patient on po Doxy and Augmentin for 6 weeks. Hudson will follow up with Dr. Calvo in 2-3 weeks. The plan is to discharge patient home today. He will follow up with Dr. Jc on Sunday at 0830 [facility]. Charges/Coding Procedures Integumentary 111xxx-113xx: [id number] [facility] Visit
--- NOTE | 2024-06-12 13:03 | DCINST_ITS ---
Discharge Instructions Diet Discharge Diet: No restrictions (high protein diet to help with healing) DC O2, CPAP, BIPAP needs Home O2 Discharge instructions: No Dressing / Incision Lifting Restrictions: No lifting with left hand Keep extremity elevated above heart level: Left Arm Additional Activity Instructions:: Wear splint at all times (except for washing hand). Shower with splint on. Dressing / Incision Call your doctor if your incision/area has: Continuous Slow Oozing, Increased Pain/ Swelling, Increased Redness, Foul Smelling Discharge and Swelling at the incision site Call your doctor if you observe: Fever of 101 or Higher, Inability to have a bowel movement, Shortness of breath, Calf discomfort and Uncontrolled pain Cleanse incision/area with: Soap & Water Follow Up Care Please Follow Up With: Red Jc MD When: Sunday06/17/24 at 8:45 am at [email or web address] Test Results: Test results from this visit will be discussed in further detail at your follow- up appointment, if applicable. Discharge Plan Admission Admit Date/Time: 06/10/24 13:04 Attending Provider: Red Jc Primary Care Provider: Blanche Tse Consulting Providers: Red Calvo Discharge Orders/Prescriptions Prescriptions: New doxycycline hyclate 100 mg capsule 100 mg PO BID Qty: 80 0RF amoxicillin-pot clavulanate 875-125 mg tablet 1 tab PO BID Qty: 80 0RF oxycodone 5 mg tablet 5 mg PO TID PRN (Reason: pain (scale score 7-10)) 7 Days Qty: 20 0RF Discontinued doxycycline monohydrate 100 mg capsule 100 mg PO BID 7 Days Qty: 14 0RF No Action ibuprofen 200 MG tablet 600 mg PO Q6H PRN PRN (Reason: Pain) Qty: 30 0RF oxycodone 5 mg tablet 5 mg PO Q4H PRN (Reason: pain) Referrals / Follow Up: Blanche Tse MD [Primary Care Provider] - Care Physician,No Primary [Non-Staff] - Disposition Disposition (needs filled in before D/C Order can be placed): Home, Self Care
--- NOTE | 2024-06-12 13:46 | DS.PCM_ITS ---
<Statement entered by Red Jc MD - 06/13/24 14:02> Pt seen & evaluated w/RICHELLE. I personally interviewed & exam the pt. I was involved in all aspects of pt's orders, interpretation of results & treatment Providers Date of Admission: 06/10/24 Date of Discharge: 06/12/24 Primary Care Physician: Blanche Tse MD Consultations 06/10/24 13:03 Consult: Infectious Disease Routine Consulting Provider: Red Calvo Reason for Consult: left hand cellulitis after surgery 06/05/24 EMERGENT Consult: No Notified: Yes Date Notified: 06/10/24 Time Notified: 13:37 Method of Notification: Text 06/10/24 13:06 Consult: Onc/Wound/flow coordinator Routine Comment: Reason for Consult:: wound care 06/10/24 18:07 Consult: Infectious Disease Routine Consulting Provider: Red Calvo Reason for Consult: Left hand cellulitis in the setting of recent ORIF EMERGENT Consult: No Notified: Yes Date Notified: 06/10/24 Time Notified: 18:07 Method of Notification: Verbal Reason For Visit: CELLULITIS OF LEFT HAND Diagnosis Discharge Diagnosis (1) Cellulitis of hand, left: Status: Acute Code(s): L03.114 - Cellulitis of left upper limb Plan: Patient doing well. ID into see patient earlier today. He will start patient on po Doxy and Augmentin for 6 weeks. Collin will follow up with Dr. Calvo in 2-3 weeks. The plan is to discharge patient home today. He will follow up with Dr. Jc on Sunday at 0830 at his clinic at [facility]. Medications at Discharge Home Medications ibuprofen 200 mg tablet 600 mg (3 x 200 mg) PO Q6H PRN PRN Pain #30 TABLETS 04/05/14 oxycodone 5 mg tablet 5 mg PO Q4H PRN pain 06/10/24 amoxicillin 875 mg-potassium clavulanate 125 mg tablet 1 tab PO BID #80 tabs 06/12/24 doxycycline hyclate 100 mg capsule 100 mg PO BID #80 caps 06/12/24 oxycodone 5 mg tablet 5 mg PO TID PRN pain (scale score 7-10) 7 days #20 tabs 06/12/24 Hospital Course Operations None Procedures None Summary of Care Provided Minutes Spent on Discharge: 20 Hospital Course: COLLIN BOOTH, is a 29 M who presented to clinic on Sunday06/10/24 with increased pain, erythema, and swelling of his left hand, after his recent surgery on 06/06/24 where he had Left index finger open reduction internal fixation. It was decided to send him to the ED to be evaluated and admitted for IV therapy due to his cellulitis and recently placed. He was admitted on 06/10/24 and started on IV Vancomycin and Zosyn. ID was consulted. After a couple days of IV antibiotics, there was an improvement in his cellulitis. ID stated on 06/12/24: S/p OR 06/06/[address] Jc for L index ORIF s/p crush injury 06/03/24 with closed fracture. On vanc/zosyn, hand improved today. Concern for hardware involvement. Will write for 6 weeks po doxy and augmentin, ID followup in 2-3 weeks. Patient will follow up Sunday06/17/[address] Jc. Physical Exam Narrative Left index finger without any rotation or angulation. Incision is dry and intact. Erythema has resolved. Fingers and hand are warm, dry and well perfused. Sensation intact. Splint in place. Const alert and oriented x3 General Appearance: cooperative Orientation / Consciousness: awake HEENT normocephalic Eyes General Eye: normal appearance of both eyes Neck full ROM Resp normal respiratory effort and normal air movement Effort and Inspection: able to speak in complete sentences Cardio regular rate and regular rhythm Back/Spine normal ROM Const oriented x3 Weight / BMI Weight Weight: 162 lb 3.2 oz Body Mass Index (BMI) 25.4 ABG / Lab / Microbiology Data 06/11/24 04:59 06/11/24 04:59 D/C Instructions Discharge Diet: No restrictions (high protein diet to help with healing) Keep extremity elevated above heart level: Left Arm Additional Activity Instructions: Wear splint at all times (except for washing hand). Shower with splint on. Call your doctor if your incision/area has: Continuous Slow Oozing, Increased Pain/ Swelling, Increased Redness, Foul Smelling Discharge and Swelling at the incision site Call your doctor if you observe: Fever of 101 or Higher, Inability to have a bowel movement, Shortness of breath, Calf discomfort and Uncontrolled pain Cleanse incision/area with: Soap & Water DC O2, CPAP, BIPAP Needs Home O2 Discharge instructions: No Please Follow Up With: Red Jc MD When: Sunday06/17/24 at 8:45 am at [facility] Meaningful Use Info Meaningful Use Meaningful Use Diagnoses (Choose all that apply): None applicable Ischemic Stroke Statin Dosing Therapy Reference: STATIN DOSE THERAPY REFERENCE: * Patients > 75 years receive moderate or high dose statin therapy. * Patients 75 years or YOUNGER should receive HIGH intensity statin dose unless contraindicated. You will be required to document reason for non-treatment if statin daily dose does not meet guidelines. HIGH DOSE STATIN THERAPY DAILY Atorvastatin > than or = to 40 mg Rosuvastatin > than or = to 20 mg Amlodipine + Atorvastatin > than or = to 2.5/40 mg Ezetimibe + Simvastatin 10/80 mg Simvastatin 80mg Discharge Plan Admission Admit Date/Time: 06/10/24 13:04 Attending Provider: Red Jc Primary Care Provider: Blanche Tse Consulting Providers: Red Calvo Instructions Forms: Work / School Excuse Discharge Orders/Prescriptions Prescriptions: New doxycycline hyclate 100 mg capsule 100 mg PO BID Qty: 80 0RF amoxicillin-pot clavulanate 875-125 mg tablet 1 tab PO BID Qty: 80 0RF oxycodone 5 mg tablet 5 mg PO TID PRN (Reason: pain (scale score 7-10)) 7 Days Qty: 20 0RF Discontinued doxycycline monohydrate 100 mg capsule 100 mg PO BID 7 Days Qty: 14 0RF No Action ibuprofen 200 MG tablet 600 mg PO Q6H PRN PRN (Reason: Pain) Qty: 30 0RF oxycodone 5 mg tablet 5 mg PO Q4H PRN (Reason: pain) Referrals / Follow Up: Blanche Tse MD [Primary Care Provider] - Care Physician,No Primary [Non-Staff] - Disposition Disposition (needs filled in before D/C Order can be placed): Home, Self Care Charges/Coding Procedures Integumentary 111xxx-113xx: [id number] [facility] Visit
[2024-06-12 14:13] VITALS: BP 132/72; PULSE 76; RESP 16; TEMP 36.6; O2SAT 98
== END 2024-06-12 15:17 | disposition home or self-care (01) | DRG 603 ==
LOC: ED 12:04 → MS3 15:40
PROVIDERS: Internal Medicine Infectious Disease; Nurse Practitioner Family; Admitting Provider Surgery Plastic and Reconstructive Surgery; Emergency Provider Emergency Medicine; PCP Family Medicine; Visit Provider Surgery Plastic and Reconstructive Surgery
DX: L03.114 Cellulitis of left upper limb (principal); T84.7XXA Infection and inflammatory reaction due to other internal orthopedic prosthetic devices, implants and grafts, initial encounter; F10.90 Alcohol use, unspecified, uncomplicated; F12.90 Cannabis use, unspecified, uncomplicated; F17.210 Nicotine dependence, cigarettes, uncomplicated; S67.191A Crushing injury of left index finger, initial encounter; S62.601A Fracture of unspecified phalanx of left index finger, initial encounter for closed fracture; Z79.2 Long term (current) use of antibiotics; Z87.891 Personal history of nicotine dependence; Z79.1 Long term (current) use of non-steroidal anti-inflammatories (NSAID); Y75.2 Prosthetic and other implants, materials and neurological devices associated with adverse incidents; Z98.890 Other specified postprocedural states
CPT/HCPCS: 36415; 80048; 80202; 85025; 99285; A4216

== ENCOUNTER → 2024-07-09 | Outpatient (CLI) | payer OTHER, SELFPAY ==
--- NOTE | 2024-07-09 10:28 | RAD_ITS ---
EXAM: XR Left Hand Complete, 3 or More Views CLINICAL INDICATION: TECHNIQUE: Frontal, lateral and oblique views of the left hand. COMPARISON: XR Hand dated 06/24/2024 FINDINGS: BONES/JOINTS: Comminuted fracture of the proximal phalanx with fixation screw in place. Subtle sclerosis suggesting start of healing. No dislocation. SOFT TISSUES: Soft tissue swelling. No radiopaque foreign body. RAD/Hand Min 3 Views IMPRESSION: Postoperative changes as above. Reading Location: [facility]
== END | disposition home or self-care (01) ==
LOC: RAD 10:23
PROVIDERS: PCP Family Medicine; Referring Provider Nurse Practitioner Family; Visit Provider Nurse Practitioner Family
DX: S62.601A Fracture of unspecified phalanx of left index finger, initial encounter for closed fracture (principal); S67.22XA Crushing injury of left hand, initial encounter; L03.114 Cellulitis of left upper limb
CPT/HCPCS: 73130

== ENCOUNTER 2024-08-18 14:30 | Outpatient (RCR) | payer OTHER, SELFPAY ==
--- NOTE | 2024-06-17 13:20 | HP.OTEVAL_ITS ---
Patient's Visit Information Visit Information Visit Information: COLLIN BOOTH is a 29 year old M, referred to Occupational Therapy by Dr. Red Jc MD, with a diagnosis of left IF fx. Date of Evaluation: 06/17/24 Occupational Therapist: Kate Daly, OTR/Rasheeda, CHT Subjective Subjective: This 29-year-old male was seen for OT eval with dx. of left IF fx. pt states on 06/03/24 pt was work related injury. pt employed at [employer]. Pt underwent sx on 06/06/24 and had complications of infection on and was admitted to [facility] for 2.5 days for antibiotics and pain mtg. pt sates he returned to work yesterday - pt is on light duty pt arrives from Dr. Jc's office in need of OT services to improve pts ROM decrease edema as well as a protective orthosis for pt to wear when at work and around others to decrease risk of injury until fx heals. 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 phalanx Quick DASH-Disab of Arm,Shoulder& Hand Quick DASH Score: 75.0000 Goals Goal:ROM equal to unaffected hand: Yes Goal:Continuing Education Instructor/Pinch strength at least 75% of unaffected hand: Yes Comment: will not initiate until week 6 unless otherwise specified By Dr. jc Goal:No pain with affected hand use: Yes Goal:PIP Circumferences equal to unaffected hand: Yes Goal:Full use of affected hand in daily activities including work: Yes Other Goal: orthosis use: pt will demo understanding of using his orthosis while at work and with heavy daily tasks by end of 1st first visit. Rehabilitation General Assessment: Pt arrives 1 week and 4 days s/p from ORIF of a left IF. Pt currently limited with his ROM and use of left hand due to newly healing structures. pt currently limited with any use of left hand at this time. Pt would benefit from skilled OT services 2-3x week for 6-8 weeks. Today therapist ed. pt on AROM of wrist, MPs, PIPs and DIPs- opposition, digit add/abduction as well as digit ext. pt demo understanding- following the ex. pt demo increase in ROM and decrease in edema- Therapist ed. pt on edema control thomas. for home. Due to pt owning an active dog- he opted for more protective splint- therapist able to place pts IF in safe position to improve pts PIP ext with wrist free. pt feels this will be helpful at work and around his dog. Therapist advised to make sure he removes splint every hour or so to work on his ROM exercise. Pt demo understanding and agree to POC. Rehabilitation Potential: Good Anticipated Interventions Anticipated Interventions: Early Active Motion, A/AAROM/PROM, Strengthening, Edema Control, Triggerpoint Release, Sensory Retraining, Modalities, Orthoses, Joint Protection/Energy Conservation, Ergonomic Education, Fine Motor Coord/Justyn, Education re assistive Equipment, Education re Diagnosis and Home Program Visit Plan Frequency: 2-3x /Week Duration: 4-6 Weeks General Plan: AROM for wrist and digits edema control orthosis for protection while bone structures are healing initiate strengthening week 6 s/p unless otherwise specified by Dr. Austin TEXT: Thank you for the opportunity to evaluate your patient. For Medicare and Medicare HMO plans, please review the plan of care and approve it. It will need to be FAXED BACK to us at [phone] for Medicare purposes. Please let me know if there are questions or concerns regarding this plan of care. Physician Signature: Date:
--- NOTE | 2025-01-28 11:37 | HP.OT.NRP ---
Patient Information Patient Information: COLLIN BOOTH was seen in my office for initial evaluation on 06/17/24. The following Plan of Care was established for this patient: POC Established Initial Frequency: 2-3x /Week Initial Duration: 4-6 Weeks Plan: cont c ROM splint for work only Anticipated Interventions Anticipated Interventions: Early Active Motion, A/AAROM/PROM, Strengthening, Edema Control, Triggerpoint Release, Sensory Retraining, Modalities, Orthoses, Joint Protection/Energy Conservation, Ergonomic Education, Fine Motor Coord/Justyn, Education re assistive Equipment, Education re Diagnosis and Home Program Last Seen Last Seen: This patient was last seen in our office 08/18/24. Pertinent comments regarding their Occupational therapy will appear below: pt d/c from therapy due to time lapse in services. At this point I will be discontinuing this patient from occupational therapy. I would be happy to see this patient again in the future if found appropriate by the physician. Thank you! Kate Daly, OTR/L, CHT
== END 2024-08-18 19:00 | disposition home or self-care (01) ==
LOC: OT 14:30
PROVIDERS: Referring Provider Surgery Plastic and Reconstructive Surgery; Visit Provider Surgery Plastic and Reconstructive Surgery
DX: S62.601D Fracture of unspecified phalanx of left index finger, subsequent encounter for fracture with routine healing (principal)
CPT/HCPCS: 97110; 97140; 97166; 97530